=== PATIENT | male | born 1950 | race Caucasian/White ===

== ENCOUNTER → 2017-03-09 | Outpatient (CLI) | payer OTHER | LOC: HYPER 07:10 | DX: S01.01XD Laceration without foreign body of scalp, subsequent encounter (principal); E78.5 Hyperlipidemia, unspecified; I10 Essential (primary) hypertension; Z85.828 Personal history of other malignant neoplasm of skin; X58.XXXD Exposure to other specified factors, subsequent encounter ==

== ENCOUNTER → 2017-06-19 | Outpatient (CLI) | payer OTHER ==
--- NOTE | ~2017-06-19 | EXE ---
[facility] [address] [address] STRESS ECHOCARDIOGRAM Name: MARQUISTAMIKO Dre Room #: REG Srikanth#: [id number] Admission: 06/19/17 Attend Phys: Hayden Castillo, Discharge: Date of : 50 Date of Service: 06/22/17 1017 Report #: [id number] THIS REPORT FOR: //name// APPROVED REPORT Exam: Stress Echocardiogram Indication: Hypertension Patient Location: Out-Patient Stress Nurse: Nessa Reyes RN Status: routine Ht: 5 ft 11 in HR: 50 bpm BP: 146/76 mmHg Rhythm: NSR Medical History Medical History: HTN, Obesity Medications: Listed on worksheet Allergies: Listed on wrksheet Cardiac Risk Factors: HTN, Hyperlipidemia, obesity Procedure The patient underwent an Exercise Stress Test using the Tim Protocol. Blood pressure, heart rate, and EKG were monitored. An Echocardiogram was performed by a and p technician in four stages in quad fashion. At peak stress, four selected images were obtained and placed side by side with resting images for comparison. Stress Test Details Stress Test: Exercise stress testing was performed using a Tim protocol. HR Resting HR: 50 bpm Max Heart Rate (APMHR): 154 bpm Max HR Achieved: 141 bpm Target HR (85% APMHR): 130 bpm % of APMHR: 91 Recovery HR: 63 bpm HR response to stress: Normal HR response to stress BP Resting BP: 146/67 mmHg Max BP: 212/60 mmHg Recovery BP: 152/82 mmHg ECG [facility] [address] [place] [address] STRESS ECHOCARDIOGRAM Name: TAMIKO CHO [id number] Admission: 06/19/17 Attend Phys: Hayden Castillo, Discharge: Date of : 50 Date of Service: 06/22/17 1017 Report #: [id number] Clinical Reason for Termination: Severe fatigue Stress Symptoms: Dyspnea Exercise duration: 9 min 59 sec Highest Stage Achieved: Stage 4: 4.2 mph at 16% grade. Exercise capacity: 12.70 METs Pre-Stress Echo The resting Echocardiogram showed normal left ventricular contractility with an estimated Ejection Fraction of about 55-60%. No significant valvular abnormalities noted. Post-Stress Echo The stress Echocardiogram showed normal left ventricular contractility with an estimated Ejection Fraction of about 65-70%. Conclusion Clinical Response: Non-ischemic Exercise Capacity: Average Stress ECG Response: Non-ischemic Stress Echo Images: Non-ischemic Other Information Study Quality: Adequate <ELECTRONICALLY SIGNED> By: Hayden Castillo MD, [facility] 06/22/17 1017 1017 Hayden Castillo MD, FACC /INF
== END ==
LOC: ULTRA 09:05 → CV 13:48
DX: I25.10 Atherosclerotic heart disease of native coronary artery without angina pectoris (principal); I10 Essential (primary) hypertension; R09.89 Other specified symptoms and signs involving the circulatory and respiratory systems

== ENCOUNTER → 2018-12-15 | Outpatient (CLI) | payer OTHER | LOC: CAT 09:53 | DX: Z13.6 Encounter for screening for cardiovascular disorders (principal); E78.00 Pure hypercholesterolemia, unspecified; I25.10 Atherosclerotic heart disease of native coronary artery without angina pectoris ==

== ENCOUNTER → 2019-05-04 | Outpatient (CLI) | payer OTHER | LOC: SJCVCIMAG 10:25 | DX: Z01.818 Encounter for other preprocedural examination (principal); I10 Essential (primary) hypertension; E78.00 Pure hypercholesterolemia, unspecified ==

== ENCOUNTER → 2019-07-13 | Outpatient (CLI) | payer OTHER | LOC: SJCVC 08:31 | PROVIDERS: ATTEND Internal Medicine Cardiovascular Disease | DX: E78.00 Pure hypercholesterolemia, unspecified (principal) ==

== ENCOUNTER → 2020-01-20 | Outpatient (CLI) | payer OTHER | LOC: SJCVC 10:13 | PROVIDERS: ATTEND Internal Medicine Cardiovascular Disease | DX: R94.31 Abnormal electrocardiogram [ECG] [EKG] (principal); I10 Essential (primary) hypertension; R00.1 Bradycardia, unspecified; E78.00 Pure hypercholesterolemia, unspecified; R93.1 Abnormal findings on diagnostic imaging of heart and coronary circulation; Z98.61 Coronary angioplasty status; Z79.899 Other long term (current) drug therapy; Z87.891 Personal history of nicotine dependence; Z82.49 Family history of ischemic heart disease and other diseases of the circulatory system ==

== ENCOUNTER → 2021-02-27 | Outpatient (CLI) | payer OTHER | LOC: SJCVCIMAG 07:47 | PROVIDERS: ATTEND Internal Medicine Cardiovascular Disease | DX: I10 Essential (primary) hypertension (principal); E78.5 Hyperlipidemia, unspecified; E78.00 Pure hypercholesterolemia, unspecified; I25.10 Atherosclerotic heart disease of native coronary artery without angina pectoris; M10.9 Gout, unspecified; R60.0 Localized edema; J30.9 Allergic rhinitis, unspecified; Z79.82 Long term (current) use of aspirin; Z79.899 Other long term (current) drug therapy ==